=== PATIENT | female | born 1960 ===

== ENCOUNTER 2021-04-26 16:25 | Emergency (ER) | payer MEDICAID ==
[~2021-04-26] VITALS: Ht 162.6 cm; Wt 72.6 kg
[2021-04-26] MEDS ORDERED: predniSONE 20 MG TAB PO ONE (21:00)
[2021-04-26] MEDS ORDERED: predniSONE 20 MG TAB ONE (21:49)
[2021-04-26 22:05] VITALS: BP 138/72
[2021-04-26 22:09] LABS: Basophils # (auto) 0 10 ^3/uL (0-0.2); Basophils % (auto) 0.8 % (0.0-2.0); Eosinophils # (auto) 0.2 10 ^3/uL (0-0.8); Eosinophils % (auto) 2.6 % (0.0-7.0); Hematocrit 46.2 % (36.0-46.0); Lymphocytes # (auto) 1.5 10 ^3/uL (0.4-5.4); Lymphocytes % (auto) 24.1 % (10.0-50.0); Mean Corpuscular Hemoglobin 31.4 pg (28.0-32.0); Mean Corpuscular Hgb Conc. 34.6 g/dL (32.0-36.0); Mean Corpuscular Volume 90.9 fL (80.0-100.0); Monocytes # (auto) 0.5 10 ^3/uL (0-1.3); Monocytes % (auto) 7.8 % (0.0-12.0); Neutrophils # (auto) 4.1 10 ^3/uL (1.6-8.6); Neutrophils % (auto) 64.7 % (37.0-80.0); Red Blood Cells 5.09 10^6/uL (4.0-5.20); Red Cell Distribution Width 12.3 % (11.8-14.3); White Blood Cell 6.3 10^3/uL (4.4-10.8)
[2021-04-26 22:29] LABS: Albumin 4.1 g/dL (3.4-5.0); BUN/Creatinine Ratio 16.2; Calcium 9.6 mg/dL (8.5-10.1); Potassium 4.3 mmol/L (3.5-5.1)
[2021-04-26 22:31] LABS: Bilirubin, Total 0.4 mg/dL (0.2-1.0); Total Protein 8.4 g/dL (6.4-8.2)
[2021-04-26 22:52] LABS: INR 0.99 (0.9-1.15); Partial Thromboplastin Time 25.1 sec (23.6-33.0)
== END 2021-04-26 22:08 | disposition home or self-care (01) ==
LOC: ER 16:25
DX: G51.0 Bell's palsy (principal); I10 Essential (primary) hypertension; E11.9 Type 2 diabetes mellitus without complications
CPT/HCPCS: 36415; 70450; 80053; 85025; 85610; 85730; 99284; J7512